=== PATIENT | female | born 1960 | race Caucasian/White ===

== ENCOUNTER 2018-11-12 17:51 | Emergency (ER) | payer OTHER ==
--- NOTE | 2018-11-12 18:23 | EDPHY ---
H & P Stated Complaint: training exercises /felt acute pain r calf muscle Time Seen by Provider: 11/12/18 18:12 HPI/ROS: CHIEF COMPLAINT: Right calf pain HISTORY OF PRESENT ILLNESS: The patient presents the emergency department with complaints of acute right calf pain that began earlier today. The patient was participating in a training exercise when this occurred. The patient has no history of immobility. She denies prior history of PE or DVT. Given the sudden nature of the patient's sharp pain she was sent to the ED for evaluation of possible DVT. The patient denies any pleuritic chest pain or shortness of breath. She denies additional acute complaints. REVIEW OF SYSTEMS: A comprehensive 10 point review of systems is otherwise negative aside from elements mentioned in the history of present illness. Source: Patient, Family - Personal History Current Tetanus Diphtheria and Acellular Pertussis (TDAP): Yes - Medical/Surgical History Hx Asthma: No Hx Chronic Respiratory Disease: No Hx Diabetes: No Hx Cardiac Disease: No Hx Renal Disease: No Hx Cirrhosis: No Hx Alcoholism: No Hx HIV/AIDS: No Hx Splenectomy or Spleen Trauma: No Other PMH: htn - Social History Smoking Status: Never smoked - Physical Exam Exam: General Appearance: Alert, no distress Eyes: Pupils equal and round no pallor or injection ENT, Mouth: Mucous membranes moist Respiratory: There are no retractions, lungs are clear to auscultation Cardiovascular: Regular rate and rhythm Gastrointestinal: Abdomen is soft and nontender, no masses, bowel sounds normal Neurological: 5/5 strength noted all 4 extremities Skin: Warm and dry, no rashes Musculoskeletal: Neck is supple nontender Extremities: Right calf tenderness Constitutional: Initial Vital Signs Temperature (C) 36.7 C 11/12/18 17:58 Heart Rate 81 11/12/18 17:58 Respiratory Rate 17 11/12/18 17:58 Blood Pressure 161/100 H 11/12/18 17:58 O2 Sat (%) 96 11/12/18 17:58 O2 Delivery Mode Room Air Allergies/Adverse Reactions: No Known Allergies Allergy (Unverified 11/12/18 17:57) Home Medications: Medication Instructions Recorded Amlodipine Besylate 11/12/18 Metoprolol Succinate 11/12/18 Medical Decision Making - Diagnostics Imaging Results: Imaging Impressions Extremity Venous Study 11/12/18 18:21 Impression: No deep venous thrombosis in the right lower extremity. Findings discussed with Jean Carlos Anne M.D. at 18:53 hour, 11/12/2018. ED Course/Re-evaluation: Patient presents the ED for evaluation of right leg and calf pain. The patient has no clinical evidence of a cellulitis or abscess. She has brisk arterial pulses. Ultrasound of the lower extremity was obtained which demonstrates no evidence of a DVT or Solis cyst. The patient likely has a myofascial strain or muscular tear. Patient will be advised to ice the area of pain and swelling. She should use anti-inflammatories. Differential Diagnosis: Differential diagnosis considered includes muscle strain, DVT, cellulitis, abscess, arterial thrombosis Departure - Departure Disposition: Home, Routine, Self-Care Clinical Impression: Strain of calf muscle Qualifiers: Encounter type: initial encounter Laterality: right Qualified Code(s): S86.811A - Strain of other muscle(s) and tendon(s) at lower leg level, right leg , initial encounter Condition: Good Instructions: Musculoskeletal Pain (ED) Additional Instructions: 1. Your ultrasound demonstrates no evidence of a DVT. 2. Ice, Tylenol and ibuprofen as needed for likely muscle strain. 3. Repeat ultrasound in 2 weeks for any ongoing symptoms to ensure that a clot has not developed. 4. Follow up with your regular physician as needed. 5. Follow up with the orthopedic surgeon you have been referred to for any persistent calf pain. Referrals: Reese Guevara MD [Medical Doctor] - As per Instructions ARON ONEIL [Primary Care Provider] - As per Instructions
[2018-11-12 19:31] VITALS: BP 132/85
== END 2018-11-12 19:31 | disposition home or self-care (01) ==
DX: S86.811A Strain of other muscle(s) and tendon(s) at lower leg level, right leg, initial encounter (principal); I10 Essential (primary) hypertension; X50.3XXA Overexertion from repetitive movements, initial encounter; Y93.B9 Activity, other involving muscle strengthening exercises; Y92.9 Unspecified place or not applicable; Y99.9 Unspecified external cause status